=== PATIENT | male | born 1940 | race African-American/Black ===

== ENCOUNTER 2019-08-19 10:40 | Observation (INO) | payer MEDICARE ==
[2019-08-19 11:20] LABS: ABSOLUTE EOSINOPHILS # (AUTO) 0.1 10^3/uL (0.0-0.6); ABSOLUTE LYMPHOCYTES (AUTO) 0.6 10^3/uL (0.5-4.7); ABSOLUTE MONOCYTES (AUTO) 0.3 10^3/uL (0.1-1.4); ABSOLUTE NEUT (AUTO) 3.5 10^3/uL (1.7-8.2); BASOPHILS % (AUTO) 0.8 % (0-2); EOSINOPHILS % (AUTO) 1.3 % (0-6); LYMPHOCYTES % (AUTO) 13.7 % (13-45); MEAN CORPUSCULAR HEMOGLOBIN 27.3 pg (27.0-33.4); MEAN CORPUSCULAR HGB CONC 32.5 g/dL (32.0-36.0); MEAN CORPUSCULAR VOLUME 84 fl (80-97); MONOCYTES % (AUTO) 7.1 % (3-13); PLATELET COUNT 127 10^3/uL (150-450); RED BLOOD COUNT 4.77 10^6/uL (4.35-5.55); RED CELL DISTRIBUTION WIDTH 14.6 % (11.5-14.0); SEGMENTED NEUTROPHILS % (AUTO) 77.1 % (42-78); TOTAL CELLS COUNTED % (AUTO) 100 %; WHITE BLOOD COUNT 4.6 10^3/uL (4.0-10.5)
[2019-08-19 11:38] LABS: ALBUMIN 4.5 g/dL (3.5-5.0); ALKALINE PHOSPHATASE 134 U/L (38-126); ANION GAP 14 (5-19); ASPARTATE AMINO TRANSFERASE 29 U/L (17-59); BILIRUBIN,DIRECT 0.2 mg/dL (0.0-0.4); BILIRUBIN,TOTAL 0.6 mg/dL (0.2-1.3); BLOOD UREA NITROGEN 14 mg/dL (7-20); CALCIUM 9.7 mg/dL (8.4-10.2); CARBON DIOXIDE 23 mmol/L (22-30); CHLORIDE 101 mmol/L (98-107); GLUCOSE 323 mg/dL (75-110); POTASSIUM 4.4 mmol/L (3.6-5.0)
--- NOTE | 2019-08-19 12:12 | RADIOLOGY REPORT (SQ) ---
EXAM DESCRIPTION: CHEST SINGLE VIEW COMPLETED DATE/TIME: 08/19/2019 11:55 am REASON FOR STUDY: Tachycardia COMPARISON: None. NUMBER OF VIEWS: One view. TECHNIQUE: Single frontal radiographic view of the chest acquired. LIMITATIONS: None. FINDINGS: LUNGS AND PLEURA: No opacities, masses or pneumothorax. No pleural effusion. MEDIASTINUM AND HILAR STRUCTURES: No masses. Contour normal. HEART AND VASCULAR STRUCTURES: Heart enlarged without failure. Normal vasculature. BONES: No acute findings. HARDWARE: Sternotomy wires. OTHER: No other significant finding. IMPRESSION: HEART ENLARGED WITHOUT FAILURE. NO OTHER SIGNIFICANT RADIOGRAPHIC FINDING IN THE CHEST. TECHNICAL DOCUMENTATION: JOB ID: [id number] [email or web address]- All Rights Reserved Reading location - IP/workstation name: [email or web address]
--- NOTE | 2019-08-19 12:24 | ER Document Report ---
Entered by TERRI HICKS SCRIBE 08/19/19 1118 Acting as scribe for:DAPHNE LOPES MD ED Cardiac - General Chief Complaint: Arrhythmia Stated Complaint: WEAKNESS,HEART BEATING FAST Time Seen by Provider: 08/19/19 11:06 Primary Care Provider: DELPHINE SUERO PA [Primary Care Provider] - Follow up as needed Mode of Arrival: Ambulatory Information source: Patient Notes: Patient is a 79-year-old male that presents to the emergency department today with complaints of "my heart beating fast". Patient states that he had just left wound care for a left medial leg ulcer when his symptoms began. Patient states when he was walking he would notice that his heart would start beating fast and he would get very tired. Patient denies ever feeling short of breath or feeling any chest pain. Patient states he has had this happen in the past but it would go away very quickly so he was never seen for it. Patient was started on Eliquis on 07/26/19 but he does not know why. Patient states about 2 weeks ago his metoprolol was increased from 50 mg to 100 mg as well. On arrival the patient had an EKG showing a supraventricular tachycardia with a rate of 151. During the physical exam his heart rate was 109, and he reported that he was feeling much better. - Related Data Allergies/Adverse Reactions: No Known Allergies Allergy (Verified 08/19/19 11:08) Home Medications: Simvastatin 40mg Daily. Metoprolol SUCC ER 100mg Daily. Eliquis 5mg Daily. Olmesartan-HCTZ 20-12.5mg Daily. Januvia 100mg Daily. Metformin 500mg Daily Past Medical History - General Information source: Patient - Social History Smoking Status: Current Every Day Smoker Cigarette use (# per day): Yes - Began at age 19 Frequency of alcohol use: Rare Drug Abuse: None Lives with: Family Family History: Reviewed & Not Pertinent Patient has suicidal ideation: No Patient has homicidal ideation: No Review of Systems - Review of Systems Constitutional: No symptoms reported EENT: No symptoms reported Cardiovascular: See HPI, Palpitations, Heart racing. denies: Chest pain Respiratory: denies: Short of breath Gastrointestinal: No symptoms reported Genitourinary: No symptoms reported Male Genitourinary: No symptoms reported Musculoskeletal: No symptoms reported Skin: No symptoms reported Hematologic/Lymphatic: No symptoms reported Neurological/Psychological: No symptoms reported -: Yes All other systems reviewed and negative Physical Exam - Vital signs Vitals: Temp Pulse Resp BP 97.6 F 109 H 16 145/93 H 08/19/19 10:54 08/19/19 10:54 08/19/19 10:54 08/19/19 10:54 - Notes Notes: Physical Exam: General: Alert, appears well. HEENT: Normocephalic. Atraumatic. PERRL. Extraocular movements intact. Oropharynx clear. Neck: Supple. Non-tender. Respiratory: No respiratory distress. Clear and equal breath sounds bilaterally. Cardiovascular: 12-lead EKG had a heart rate of 151. During exam the patient's heart rate is 109 and he reports he feels much better now. Abdominal: Obese. Non-tender. No distension. Normal Bowel Sounds. Back: No gross abnormalities. Extremities: Moves all four extremities. Upper extremities: Normal inspection. Normal ROM. Lower extremities: trace pitting edema bilaterally, bandaged wound to left m edial distal leg. Normal ROM. Neurological: Normal cognition. AAOx4. Normal speech. Psychological: Normal affect. Normal Mood. Skin: Warm. Dry. Normal color. Course - Re-evaluation Re-evalutation: 08/19/19 15:11 Repeat EKGs as the patient's rate slowed, shows this is atrial flutter. I suspect he has had this problem in the past, which is why his metoprolol dose was increased recently and he was started on Eliquis. - Vital Signs Vital signs: Temp Pulse Resp BP Pulse Ox 97.6 F 109 H 16 145/93 H 08/19/19 10:54 08/19/19 10:54 08/19/19 10:54 08/19/19 10:54 - Laboratory Result Diagrams: 08/19/19 11:06 08/19/19 11:06 Laboratory results interpreted by me: 08/19/19 08/19/19 11:06 11:06 Hgb 13.0 L RDW 14.6 H Plt Count 127 L Glucose 323 H Alkaline Phosphatase 134 H - Diagnostic Test Radiology reviewed: Image reviewed, Reports reviewed - Chest x-ray shows median sternotomy wires. Enlarged heart. No congestive failure. - EKG Interpretation by Wi EKG shows normal: [place], Intervals, ST-T Waves. 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 Rate: Tachycardia - 151 Rhythm: Other - Probable atrial flutter Critical Care Note - Critical Care Note Total time excluding time spent on procedures (mins): 35 Discharge - Discharge Clinical Impression: Atrial flutter with rapid ventricular response Condition: Stable Disposition: ADMITTED INPATIENT Admitting Provider: Elijah (Hospitalist) Unit Admitted: IMCU Referrals: DELPHINE SUERO PA [Primary Care Provider] - Follow up as needed Scribe Attestation: 08/19/19 11:29 I personally performed the services described in the documentation, reviewed and edited the documentation which was dictated to the scribe in my presence, and it accurately records my words and actions. I personally performed the services described in the documentation, reviewed and edited the documentation which was dictated to the scribe in my presence, and it accurately records my words and actions.
[2019-08-19] MEDS ORDERED: OXYCODONE-ACETAMINOPHEN 5-325 MG TABLET PO PRN (15:27)
[2019-08-19] MEDS ORDERED: ONDANSETRON HCL INJ/PF 4 MG/2 ML SDV IV PRN (15:27)
[2019-08-19] MEDS ORDERED: ACETAMINOPHEN 325 MG TABLET PO PRN (15:27)
[2019-08-19] MEDS ORDERED: ZOLPIDEM TARTRATE 5 MG TABLET PO PRN (15:27)
[2019-08-19] MEDS ORDERED: MAG HYDROX/AL HYDROX/SIMETH SUSP 30 ML UDCUP PO PRN (15:27)
[2019-08-19] MEDS ORDERED: DEXTROSE 40% GEL 15 GM TUBE PO PRN ×2 (15:31)
[2019-08-19] MEDS ORDERED: GLUCAGON,HUMAN RECOMB 1 MG INJ IM PRN (15:31)
[2019-08-19] MEDS ORDERED: DEXTROSE 50%-WATER 25 GM/50 ML DISP.SYRIN IV PRN ×2 (15:31)
--- NOTE | 2019-08-19 15:37 | PDOC H&P ---
History of Present Illness Admission Date/PCP: 08/19/19 15:13 SHON JUAN Patient complains of: Palpitations History of Present Illness: DEMETRICE BRUNSON is a 79 year old male Past Medical History Cardiac Medical History: Reports: Atrial Fibrillation, Myocardial Infarction Pulmonary Medical History: Reports: None EENT Medical History: Reports: None Neurological Medical History: Reports: None Endocrine Medical History: Reports: Diabetes Mellitus Type 2 Renal/ Medical History: Reports: None Malignancy Medical History: Reports: None GI Medical History: Reports: None Musculoskeltal Medical History: Reports: None Skin Medical History: Reports: Other - 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 Traumatic Medical History: Reports: None Infectious Medical History: Reports: None Past Surgical History Past Surgical History: Reports: None Social History Information Source: Patient Lives with: Family Smoking Status: Current Every Day Smoker Cigarettes Packs Per Day: 20 Electronic Cigarette use?: No Frequency of Alcohol Use: None Hx Recreational Drug Use: No Drugs: None Hx Prescription Drug Abuse: No - Advance Directive Resuscitation Status: Full Code Family History Family History: DM, Hypertension Parental Family History Reviewed: Yes Children Family History Reviewed: Yes Sibling(s) Family History Reviewed.: Yes Medication/Allergy Allergies/Adverse Reactions: No Known Allergies Allergy (Verified 08/19/19 11:08) Review of Systems Constitutional: ABSENT: chills, fever(s), headache(s), weight gain, weight loss Eyes: ABSENT: visual disturbances Ears: ABSENT: hearing changes Cardiovascular: PRESENT: palpitations. ABSENT: chest pain, dyspnea on exertion, edema, orthropnea Respiratory: ABSENT: cough, hemoptysis Gastrointestinal: ABSENT: abdominal pain, constipation, diarrhea, hematemesis, hematochezia, nausea, vomiting Genitourinary: ABSENT: dysuria, hematuria Musculoskeletal: ABSENT: joint swelling Integumentary: ABSENT: rash, wounds Neurological: ABSENT: abnormal gait, abnormal speech, confusion, dizziness, focal weakness, syncope Psychiatric: ABSENT: anxiety, depression, homidical ideation, suicidal ideation Endocrine: ABSENT: cold intolerance, heat intolerance, polydipsia, polyuria Hematologic/Lymphatic: ABSENT: easy bleeding, easy bruising Physical Exam Vital Signs: Temp Pulse Resp BP Pulse Ox 97.6 F 109 H 18 114/99 H 99 08/19/19 10:54 08/19/19 10:54 08/19/19 15:01 08/19/19 15:01 08/19/19 15:01 Intake & Output 08/18/19 08/19/19 08/20/19 06:59 06:59 06:59 Weight 118 kg General appearance: PRESENT: no acute distress, well-developed, well-nourished Head exam: PRESENT: atraumatic, normocephalic Eye exam: PRESENT: conjunctiva pink, EOMI, PERRLA. ABSENT: scleral icterus Ear exam: PRESENT: normal external ear exam Mouth exam: PRESENT: moist, tongue midline Neck exam: ABSENT: carotid bruit, JVD, lymphadenopathy, thyromegaly Respiratory exam: PRESENT: clear to auscultation jacob. ABSENT: rales, rhonchi, wheezes Cardiovascular exam: PRESENT: irregular rhythm, tachycardia. ABSENT: diastolic murmur, rubs, systolic murmur Pulses: PRESENT: normal dorsalis pedis pul Vascular exam: PRESENT: normal capillary refill GI/Abdominal exam: PRESENT: normal bowel sounds, soft. ABSENT: distended, guarding, mass, organolmegaly, rebound, tenderness Rectal exam: PRESENT: deferred Extremities exam: PRESENT: full ROM. ABSENT: calf tenderness, clubbing, pedal edema Neurological exam: PRESENT: alert, awake, oriented to person, oriented to place, oriented to time, oriented to situation, CN II-XII grossly intact. ABSENT: motor sensory deficit Psychiatric exam: PRESENT: appropriate affect, normal mood. ABSENT: homicidal ideation, suicidal ideation Skin exam: PRESENT: dry, intact, warm. ABSENT: cyanosis, rash Adult Front & Back Image: 1 - Diabetic ulcer Results Laboratory Results: 08/19/19 11:06 08/19/19 11:06 08/19/19 08/19/19 11:06 11:06 WBC 4.6 RBC 4.77 Hgb 13.0 L Hct 40.0 MCV 84 MCH 27.3 MCHC 32.5 RDW 14.6 H Plt Count 127 L Seg Neutrophils % 77.1 Sodium 137.7 Potassium 4.4 Chloride 101 Carbon Dioxide 23 Anion Gap 14 BUN 14 Creatinine 0.89 Est GFR ( Amer) > 60 Glucose 323 H Calcium 9.7 Total Bilirubin 0.6 AST 29 Alkaline Phosphatase 134 H Total Protein 8.0 Albumin 4.5 08/19/19 08/19/19 11:06 12:23 Troponin I < 0.012 < 0.012 Impressions: Chest X-Ray 08/19/19 10:53 IMPRESSION: HEART ENLARGED WITHOUT FAILURE. NO OTHER SIGNIFICANT RADIOGRAPHIC FINDING IN THE CHEST. Assessment and Plan - Diagnosis (1) Atrial flutter with rapid ventricular response Is this a current diagnosis for this admission?: Yes Plan: 08/19/2019-admit to [facility]. Patient rate down into the 90s in the ER I will place him on Cardizem 30 mill grams p.o. 3 times daily. Patient will be seen by Dr. Mayen in consultation. Patient takes metoprolol was increased from 50 mg to 100 mg about 2 weeks ago and was started on Eliquis as well. Family and patient a poor historian however suspect this is secondary to chronic atrial fibrillation. Will await further regulation per Dr. Mayen. (2) Diabetes mellitus type 2 in obese Is this a current diagnosis for this admission?: Yes Plan: 08/19/2019-carbohydrate controlled diet. A1c. Sliding scale insulin before meals and at bedtime. Once medication reconciliation complete I will continue home medications. - Time Time Spent with patient: 35 or more minutes
[2019-08-19] MEDS: INSULIN REG, HUMAN 100 UNIT/ML 3 ML VIAL (PYX) SUBCUT SCH ×2 (15:50→22:06)
[2019-08-19] MEDS: DILTIAZEM HCL 30 MG TABLET PO SCH ×2 (15:51→22:07)
[2019-08-20 05:52] LABS: ABSOLUTE EOSINOPHILS # (AUTO) 0.1 10^3/uL (0.0-0.6); ABSOLUTE MONOCYTES (AUTO) 0.4 10^3/uL (0.1-1.4); ABSOLUTE NEUT (AUTO) 2.5 10^3/uL (1.7-8.2); BASOPHILS % (AUTO) 0.7 % (0-2); EOSINOPHILS % (AUTO) 2.9 % (0-6); HEMATOCRIT 37.8 % (37.9-51.0); HEMOGLOBIN 12.2 g/dL (13.5-17.0); LYMPHOCYTES % (AUTO) 24.3 % (13-45); MEAN CORPUSCULAR HGB CONC 32.3 g/dL (32.0-36.0); MEAN CORPUSCULAR VOLUME 84 fl (80-97); PLATELET COUNT 125 10^3/uL (150-450); RED BLOOD COUNT 4.52 10^6/uL (4.35-5.55); RED CELL DISTRIBUTION WIDTH 14.4 % (11.5-14.0); SEGMENTED NEUTROPHILS % (AUTO) 61.1 % (42-78); TOTAL CELLS COUNTED % (AUTO) 100 %
[2019-08-20 06:25] LABS: ANION GAP 10 (5-19); BLOOD UREA NITROGEN 14 mg/dL (7-20); CALCIUM 9.6 mg/dL (8.4-10.2); CARBON DIOXIDE 25 mmol/L (22-30); CHLORIDE 102 mmol/L (98-107); CHOLESTEROL 138.46 mg/dL (0-200); DIRECT LDL 77 mg/dL (<100); GLUCOSE 206 mg/dL (75-110); POTASSIUM 4.1 mmol/L (3.6-5.0); TRIGLYCERIDES 57 mg/dL (<150)
[2019-08-20] MEDS: DILTIAZEM HCL 30 MG TABLET PO SCH (06:25)
[2019-08-20] MEDS: INSULIN REG, HUMAN 100 UNIT/ML 3 ML VIAL (PYX) SUBCUT SCH ×4 (08:28→21:12)
--- NOTE | 2019-08-20 11:06 | PDOC PROGRESS REPORT ---
Subjective Progress Note for:: 08/20/19 Subjective:: 08/20/2019-no complaints Reason For Visit: AFIB WITH RAPID VENTRICULAR RESPONSE Physical Exam Vital Signs: Temp Pulse Resp BP Pulse Ox 97.8 F 74 18 144/73 H 100 08/20/19 07:45 08/20/19 07:45 08/20/19 07:45 08/20/19 07:45 08/20/19 07:45 Intake & Output 08/19/19 08/20/19 08/21/19 06:59 06:59 06:59 Weight 109.7 kg General appearance: PRESENT: no acute distress, well-developed, well-nourished Neck exam: ABSENT: carotid bruit, JVD, lymphadenopathy, thyromegaly Respiratory exam: PRESENT: clear to auscultation jacob. ABSENT: rales, rhonchi, wheezes Cardiovascular exam: PRESENT: irregular rhythm, +S1, +S2 Pulses: PRESENT: +1 pedal pulses bilateral Vascular exam: PRESENT: normal capillary refill GI/Abdominal exam: PRESENT: normal bowel sounds, soft. ABSENT: distended, guarding, mass, organolmegaly, rebound, tenderness Extremities exam: PRESENT: full ROM. ABSENT: calf tenderness, clubbing, pedal edema Neurological exam: PRESENT: alert, awake, oriented to person, oriented to place, oriented to time, oriented to situation, CN II-XII grossly intact. ABSENT: motor sensory deficit Psychiatric exam: PRESENT: appropriate affect, normal mood. ABSENT: homicidal ideation, suicidal ideation Skin exam: PRESENT: dry, intact, warm. ABSENT: cyanosis, rash Results Laboratory Results: 08/20/19 05:20 08/20/19 05:20 08/19/19 08/19/19 08/20/19 11:06 11:06 05:20 WBC 4.6 4.0 RBC 4.77 4.52 Hgb 13.0 L 12.2 L Hct 40.0 37.8 L MCV 84 84 MCH 27.3 27.0 MCHC 32.5 32.3 RDW 14.6 H 14.4 H Plt Count 127 L 125 L Seg Neutrophils % 77.1 61.1 Sodium 137.7 Potassium 4.4 Chloride 101 Carbon Dioxide 23 Anion Gap 14 BUN 14 Creatinine 0.89 Est GFR ( Amer) > 60 Glucose 323 H Calcium 9.7 Phosphorus Magnesium Total Bilirubin 0.6 AST 29 Alkaline Phosphatase 134 H Total Protein 8.0 Albumin 4.5 Triglycerides Cholesterol LDL Cholesterol Direct VLDL Cholesterol HDL Cholesterol 08/20/19 05:20 WBC RBC Hgb Hct MCV MCH MCHC RDW Plt Count Seg Neutrophils % Sodium 136.5 L Potassium 4.1 Chloride 102 Carbon Dioxide 25 Anion Gap 10 BUN 14 Creatinine 0.81 Est GFR ( Amer) > 60 Glucose 206 H Calcium 9.6 Phosphorus 4.0 Magnesium 1.9 Total Bilirubin AST Alkaline Phosphatase Total Protein Albumin Triglycerides 57 Cholesterol 138.46 LDL Cholesterol Direct 77 VLDL Cholesterol 11.0 HDL Cholesterol 44 08/19/19 08/19/19 11:06 12:23 Troponin I < 0.012 < 0.012 Impressions: Chest X-Ray 08/19/19 10:53 IMPRESSION: HEART ENLARGED WITHOUT FAILURE. NO OTHER SIGNIFICANT RADIOGRAPHIC FINDING IN THE CHEST. Assessment and Plan - Diagnosis (1) Atrial flutter with rapid ventricular response Is this a current diagnosis for this admission?: Yes Plan: 08/19/2019-admit to [facility]. Patient rate down into the 90s in the ER I will place him on Cardizem 30 mill grams p.o. 3 times daily. Patient will be seen by Dr. Mayen in consultation. Patient takes metoprolol was increased from 50 mg to 100 mg about 2 weeks ago and was started on Eliquis as well. Family and patient a poor historian however suspect this is secondary to chronic atrial fibrillation. Will await further regulation per Dr. Mayen. 08/20/2019-rate controlled at this time. I will convert him from Cardizem 30 mill grams p.o. 3 times daily to Cardizem CD 120 mg daily. Patient is on Eliquis. Patient also recently increased from 50 mg of metoprolol to 100 daily. I suspect given the fact the patient is on Eliquis that started just a few weeks ago this was placed secondary to atrial fibrillation which is chronic in nature. At this time patient is controlled he did have a short run of rapid RVR this morning that was very limited. I will watch him 1 more day and suspect discharge in the a.m. continue on Cardizem and follow-up with his primary care practitioner. (2) Diabetes mellitus type 2 in obese Is this a current diagnosis for this admission?: Yes Plan: 08/19/2019-carbohydrate controlled diet. A1c. Sliding scale insulin before meals and at bedtime. Once medication reconciliation complete I will continue home medications. 08/20/2019-A1c 9.3. Continue sliding scale insulin on discharge will readjust all oral diabetes medications and have him follow-up with his primary care in 1 week. (3) Hypertension Is this a current diagnosis for this admission?: Yes Plan: 08/20/2019-continue metoprolol - Time Time Spent with patient: 15-24 minutes
[2019-08-20] MEDS: DILTIAZEM HCL 120 MG CAP.SR.24H PO SCH (11:29)
--- NOTE | 2019-08-21 00:19 | EKG REPORT ---
SEVERITY:- ABNORMAL ECG - ATRIAL FLUTTER ANTERIOR INFARCT, OLD : Confirmed by: Francisco Smith 21-Aug-2019 00:18:54
--- NOTE | 2019-08-21 00:19 | EKG REPORT ---
SEVERITY:- ABNORMAL ECG - ATRIAL FLUTTER, A-RATE 214 ANTERIOR INFARCT, OLD : Confirmed by: Francisco Smith 21-Aug-2019 00:18:21
--- NOTE | 2019-08-21 00:20 | EKG REPORT ---
SEVERITY:- ABNORMAL ECG - ANTERIOR INFARCT, AGE INDETERMINATE REPOLARIZATION ABNORMALITY, PROB RATE RELATED A FIB, FLUTTER : Confirmed by: Francisco Smith 21-Aug-2019 00:19:28
[2019-08-21 06:21] LABS: HEMATOCRIT 37.5 % (37.9-51.0); HEMOGLOBIN 12.3 g/dL (13.5-17.0); MEAN CORPUSCULAR HEMOGLOBIN 27.5 pg (27.0-33.4); MEAN CORPUSCULAR HGB CONC 32.7 g/dL (32.0-36.0); MEAN CORPUSCULAR VOLUME 84 fl (80-97); PLATELET COUNT 119 10^3/uL (150-450); RED BLOOD COUNT 4.47 10^6/uL (4.35-5.55); RED CELL DISTRIBUTION WIDTH 14.5 % (11.5-14.0); WHITE BLOOD COUNT 4.6 10^3/uL (4.0-10.5)
[2019-08-21 06:42] LABS: ANION GAP 13 (5-19); BLOOD UREA NITROGEN 13 mg/dL (7-20); CARBON DIOXIDE 23 mmol/L (22-30); CHLORIDE 103 mmol/L (98-107); GLUCOSE 161 mg/dL (75-110); POTASSIUM 4.4 mmol/L (3.6-5.0)
[2019-08-21] MEDS ORDERED: INFLUENZA QUAD (6MOS+) 2019-20 VAC 0.5 ML SYR IM ONE (08:00)
[2019-08-21] MEDS: INSULIN REG, HUMAN 100 UNIT/ML 3 ML VIAL (PYX) SUBCUT SCH ×2 (08:16→11:53)
--- NOTE | 2019-08-21 09:28 | PDOC DISCHARGE SUMMARY ---
Impression - Admit/DC Date/PCP Admission Date/Primary Care Provider: 08/19/19 15:13 SHON JUAN Discharge Date: 08/21/19 - Discharge Diagnosis (1) Atrial flutter with rapid ventricular response Is this a current diagnosis for this admission?: Yes (2) Diabetes mellitus type 2 in obese Is this a current diagnosis for this admission?: Yes - Additional Information Resuscitation Status: Full Code Discharge Activity: Activity As Tolerated Referrals: DELPHINE SUERO PA [Primary Care Provider] - Follow up as needed Prescriptions: Diltiazem HCl [Cardizem Cd 120 mg Capsule] 120 mg PO DAILY #30 cap.sr.24h Home Medications: Apixaban [Eliquis 5 mg Tablet] 5 mg PO Q12 08/19/19 Metformin HCl [Glucophage 500 mg Tablet] 500 mg PO BID 08/19/19 Metoprolol Succinate [Toprol XL 100 mg Tablet] 100 mg PO DAILY 08/19/19 Olmesartan/Hydrochlorothiazide [Olmesartan-Hctz 20-12.5 mg Tab] 1 tab PO DAILY 08/19/19 Simvastatin [Zocor 40 mg Tablet] 40 mg PO QHS 08/19/19 Sitagliptin Phosphate [Januvia] 100 mg PO DAILY 08/19/19 Diltiazem HCl [Cardizem Cd 120 mg Capsule] 120 mg PO DAILY #30 cap.sr.24h 08/21/19 History of Present Illiness History of Present Illness: DEMETRICE BRUNSON is a 79 year old male Hospital Course Hospital Course: Patient presented to ER with complaints of my heart is beating fast. He just had the leg wound therapy for a left medial leg ulcer when the symptoms began. He did not have any chest pain or shortness of breath with this rapid heart rate was found to be in A. fib with RVR in the ER. Patient was recently started on Eliquis by his primary care practitioner and had metoprolol increased from 50 mg to 100 mg which I suspect was for atrial fibrillation. I placed patient on IMCU and started him on p.o. Cardizem. At this time patient rate stays in the 70s to 80s on Cardizem CD 120 mg which I will continue at home. He will also continue his metoprolol and Eliquis. Patient will follow-up with his primary care pra ctitioner in 1 week. Patient is in agreement with plan of care. Physical Exam Vital Signs: Temp Pulse Resp BP Pulse Ox 97.8 F 87 20 131/59 H 98 08/21/19 07:40 08/21/19 07:40 08/21/19 07:40 08/21/19 07:40 08/21/19 07:40 Intake & Output 08/20/19 08/21/19 08/22/19 06:59 06:59 06:59 Intake Total 1481 Balance 1481 Weight 109.7 kg 109 kg General appearance: PRESENT: no acute distress, well-developed, well-nourished Head exam: PRESENT: atraumatic, normocephalic Eye exam: PRESENT: conjunctiva pink, EOMI, PERRLA. ABSENT: scleral icterus Ear exam: PRESENT: normal external ear exam Mouth exam: PRESENT: moist, tongue midline Neck exam: ABSENT: carotid bruit, JVD, lymphadenopathy, thyromegaly Respiratory exam: PRESENT: clear to auscultation jacob. ABSENT: rales, rhonchi, wheezes Cardiovascular exam: PRESENT: irregular rhythm. ABSENT: diastolic murmur, rubs, systolic murmur Pulses: PRESENT: normal dorsalis pedis pul Vascular exam: PRESENT: normal capillary refill GI/Abdominal exam: PRESENT: normal bowel sounds, soft. ABSENT: distended, guarding, mass, organolmegaly, rebound, tenderness Rectal exam: PRESENT: deferred Extremities exam: PRESENT: full ROM. ABSENT: calf tenderness, clubbing, pedal edema Neurological exam: PRESENT: alert, awake, oriented to person, oriented to place, oriented to time, oriented to situation, CN II-XII grossly intact. ABSENT: motor sensory deficit Psychiatric exam: PRESENT: appropriate affect, normal mood. ABSENT: homicidal ideation, suicidal ideation Skin exam: PRESENT: dry, intact, warm. ABSENT: cyanosis, rash Results Laboratory Results: WBC 4.6 10^3/uL (4.0-10.5) 08/21/19 05:46 RBC 4.47 10^6/uL (4.35-5.55) 08/21/19 05:46 Hgb 12.3 g/dL (13.5-17.0) L 08/21/19 05:46 Hct 37.5 % (37.9-51.0) L 08/21/19 05:46 MCV 84 fl (80-97) 08/21/19 05:46 MCH 27.5 pg (27.0-33.4) 08/21/19 05:46 MCHC 32.7 g/dL (32.0-36.0) 08/21/19 05:46 RDW 14.5 % (11.5-14.0) H 08/21/19 05:46 Plt Count 119 10^3/uL (150-450) L 08/21/19 05:46 Lymph % (Auto) 24.3 % (13-45) 08/20/19 05:20 Lynn % (Auto) 11.0 % (3-13) 08/20/19 05:20 Eos % (Auto) 2.9 % (0-6) 08/20/19 05:20 Baso % (Auto) 0.7 % (0-2) 08/20/19 05:20 Absolute Neuts (auto) 2.5 10^3/uL (1.7-8.2) 08/20/19 05:20 Absolute Lymphs (auto) 1.0 10^3/uL (0.5-4.7) 08/20/19 05:20 Absolute Monos (auto) 0.4 10^3/uL (0.1-1.4) 08/20/19 05:20 Absolute Eos (auto) 0.1 10^3/uL (0.0-0.6) 08/20/19 05:20 Absolute Basos (auto) 0.0 10^3/uL (0.0-0.2) 08/20/19 05:20 Seg Neutrophils % 61.1 % (42-78) 08/20/19 05:20 Sodium 139.0 mmol/L (137-145) 08/21/19 05:46 Potassium 4.4 mmol/L (3.6-5.0) 08/21/19 05:46 Chloride 103 mmol/L (98-107) 08/21/19 05:46 Carbon Dioxide 23 mmol/L (22-30) 08/21/19 05:46 Anion Gap 13 (5-19) 08/21/19 05:46 BUN 13 mg/dL (7-20) 08/21/19 05:46 Creatinine 0.66 mg/dL (0.52-1.25) 08/21/19 05:46 Est GFR ( Amer) > 60 (>60) 08/21/19 05:46 Est GFR (MDRD) Non-Af > 60 (>60) 08/21/19 05:46 Glucose 161 mg/dL (75-110) H 08/21/19 05:46 POC Glucose 180 mg/dL (70-110) H 08/21/19 07:41 Hemoglobin A1c % 9.3 % (4.7-6.0) H 08/20/19 05:20 Calcium 9.0 mg/dL (8.4-10.2) 08/21/19 05:46 Phosphorus 4.0 mg/dL (2.5-4.5) 08/20/19 05:20 Magnesium 1.9 mg/dL (1.6-2.3) 08/20/19 05:20 Total Bilirubin 0.6 mg/dL (0.2-1.3) 08/19/19 11:06 Direct Bilirubin 0.2 mg/dL (0.0-0.4) 08/19/19 11:06 Neonat Total Bilirubin Not Reportable 08/19/19 11:06 Neonat Direct Bilirubin Not Reportable 08/19/19 11:06 Neonat Indirect Bili Not Reportable 08/19/19 11:06 AST 29 U/L (17-59) 08/19/19 11:06 ALT 19 U/L (<50) 08/19/19 11:06 Alkaline Phosphatase 134 U/L (38-126) H 08/19/19 11:06 Troponin I < 0.012 ng/mL 08/19/19 12:23 Total Protein 8.0 g/dL (6.3-8.2) 08/19/19 11:06 Albumin 4.5 g/dL (3.5-5.0) 08/19/19 11:06 Triglycerides 57 mg/dL (<150) 08/20/19 05:20 Cholesterol 138.46 mg/dL (0-200) 08/20/19 05:20 LDL Cholesterol Direct 77 mg/dL (<100) 08/20/19 05:20 VLDL Cholesterol 11.0 mg/dL (10-31) 08/20/19 05:20 HDL Cholesterol 44 mg/dL (>40) 08/20/19 05:20 08/19/19 08/19/19 11:06 12:23 Troponin I < 0.012 < 0.012 Impressions: Chest X-Ray 08/19/19 10:53 IMPRESSION: HEART ENLARGED WITHOUT FAILURE. NO OTHER SIGNIFICANT RADIOGRAPHIC FINDING IN THE CHEST. Plan Time Spent: Greater than 30 Minutes Stroke Is this a Stroke Patient?: No Acute Heart Failure - Is this a Heart Failure Patient?: No
[2019-08-21] MEDS: DILTIAZEM HCL 120 MG CAP.SR.24H PO SCH (09:31)
[2019-08-21 12:10] VITALS: BP 135/78
== END 2019-08-21 13:27 | disposition home or self-care (01) ==
LOC: ER 10:40 → EH 15:13 → INTOOBSV 15:13 → 3N 19:37
PROVIDERS: ADMIT Hospitalist; ATTEND Hospitalist
DX: I48.92 Unspecified atrial flutter (principal); E11.622 Type 2 diabetes mellitus with other skin ulcer; L97.329 Non-pressure chronic ulcer of left ankle with unspecified severity; I10 Essential (primary) hypertension; E66.9 Obesity, unspecified; R60.0 Localized edema; I25.2 Old myocardial infarction; Z79.02 Long term (current) use of antithrombotics/antiplatelets; Z79.899 Other long term (current) drug therapy; Z79.84 Long term (current) use of oral hypoglycemic drugs; F17.210 Nicotine dependence, cigarettes, uncomplicated; Z82.49 Family history of ischemic heart disease and other diseases of the circulatory system; Z23 Encounter for immunization
CPT/HCPCS: 93005; 99291; 36415 ×3; 82962 ×3; 83735; 84100; 85025 ×2; 85027; 80048 ×2; 80053; 84484; 83036; 80061; 71045; 90686; 93010; G0378 ×4; A9270 ×7; J3490 ×2; J1815